=== PATIENT | female | born 1940 | race Caucasian/White ===

== ENCOUNTER 2016-10-03 19:06 | Inpatient (IN) | payer MEDICARE, OTHER ==
[2016-10-03] VITALS (7 sets, daily range): BP systolic 162–214; BP diastolic 76–105; PULSE 61–68; RESP 12–18; O2SAT 97–100
[~2016-10-03] VITALS: Ht 167.6 cm; Wt 58.0 kg
--- NOTE | 2016-10-03 19:18 | ED.REPORT ---
HPI-Chest Pain 40 and Over Date of Service October 03, 2016 ED Provider: Puneet Coronel Patient is a 76 year old female with past medical history notable for coronary artery disease with 2 cardiac stents, known lumbar compression fractures who presents to the ED via EMS complaining of back pain onset 3 weeks ago. Her pain is dull and constant. Today her pain radiated to her chest which was a new symptom for her and was concerning to her given her history of coronary artery disease and stents. She reports that at baseline she has some L leg and back numbness and she denies lower extremity weakness. She denies shortness of breath , or any other symptoms. She has had similar symptoms previously but never as severe. Nursing Notes Stated Complaint: CHEST AND BACK PAIN Chief Complaint: Chest Pain Nursing Notes Reviewed: Yes Allergies: Coded Allergies: simvastatin (Verified Allergy, Unknown, 10/03/16) Patient confirmed this allergy- was in [facility] paperwork. Scheduled Aspirin (Aspirin) 81 Mg Tablet 81 MG PO DAILY Atorvastatin (Lipitor) 20 Mg Tablet 10 MG PO DAILY Calcium Carbonate (Calcium Carbonate) 600 Mg Tablet 600 MG PO BID Hydrochlorothiazide (Hydrochlorothiazide) 25 Mg Tablet 25 MG PO DAILY Lisinopril (Lisinopril) 5 Mg Tablet 5 MG PO DAILY Loratadine (Claritin) 10 Mg Capsule 10 MG PO DAILY Losartan Potassium (Losartan Potassium) 100 Mg Tablet 100 MG PO DAILY Potassium Chloride ER (Potassium Chloride ER) 20 Meq Tablet.er 40 MEQ PO BID TAKE WITH FOOD Miscellaneous Medications ([Glucosamine-Chondro]) General Time Seen by MD: 19:17 Chief Complaint Back pain Hx Obtained From: Patient, Spouse Arrived By: Ambulance Sudden in Onset?: Yes Onset Occurred: More than a week ago... (3 weeks) Risk Factors )( CAD Risk Stratification HypertensionNo Diabetes mellitus, No Smoking Risk factors reviewed )( TAD Risk Stratification HypertensionNo High intensity wt lifting, No Risk factors reviewed )( PE Risk Stratification No Coagulation Disorder, No Risk factors reviewed Past Medical History Past Medical History IA Reports: Hypertension Past Surgical History Stents x2 Smoking History Former Smoker Social History Alcohol Use: In recovery Other Social History: Good social support, Review of Systems Constitutional: Reports: Weakness - generalized Respiratory: Denies: Shortness of breath Cardiovascular: Reports: Chest pain Musculoskeletal: Reports: Back pain Neurologic: Reports: Numbness, Denies: Weakness Complete sys rev & neg: except as marked. Physical Exam Initial Vital Signs Vital Signs (First) Date Time Temp Pulse Resp B/P Pulse Ox O2 Delivery O2 Flow Rate FiO2 10/03/16 19:12 37.1 65 12 214/90 98 Room Air 10/03/16 19:18 2 Initial VS: Reviewed Head / Eyes: Atraumatic, Normocephalic Skin: Warm, Dry Psychiatric: Mood/affect normal, Behavior normal, Normal thought content General/Constitutional: Awake, Alert, Well developed Respiratory / Chest: Breath sounds NL, Breath sounds = bilat, No respiratory distress Breath sounds slightly diminished Cardiovascular: Heart rate NL, Regular rhythm, Heart sounds NL, No gallop, No murmurs, No rubs, Peripheral circulation NL Abdomen: Soft, Non-tender, No distention Back: Full range of motion Diffuse tenderness about lumbar spine. No focal deformity Lower Extremity / Pelvis / MS: No swelling, Non-tender Neurologic: Oriented X3, Speech NL Subjective diminished sensation in LLE strenth 55 in bilat LE Mouth: Positive: Mucous membranes dry Interpretation & Diagnostics Lab Results Interpretation Result Diagram: 10/03/16192910/03/161929 Test 10/03/16 19:30 White Blood Count 5.3th/mm3 (3.8-10.1) Red Blood Count 4.54mil/mm3 (3.90-5.20) Hemoglobin 13.6g/dL (12.0-15.6) Hematocrit 36.1% (35.0-46.0) Mean Corpuscular Volume 79.5fL (81-100) Mean Corpuscular Hemoglobin 30.0pg (27.0-35.0) Mean Corpuscular Hemoglobin Concent 37.7% (32.0-37.0) Red Cell Distribution Width 11.6% (12.3-15.4) Platelet Count 216bil/L (150-400) Neutrophils (%) (Auto) 68.7% (40-74) Lymphocytes (%) (Auto) 20.8% (14-46) Monocytes (%) (Auto) 8.8% (4-12) Eosinophils (%) (Auto) 1.1% (0-5) Basophils (%) (Auto) 0.4% (0-3) Sodium Level 121mEq/L (134-144) Potassium Level 2.3mEq/L (3.5-5.2) Chloride Level 77mEq/L (97-108) Carbon Dioxide Level 33mmol/L (18-29) Blood Urea Nitrogen 17mg/dL (8-27) Creatinine 0.51mg/dL (0.57-1.00) Estimat Glomerular Filtration Rate 168mL/min (>59) Glucose Level 108mg/dL (60-99) Osmolality 263 (275-300) Calcium Level 9.5mg/dL (8.5-10.1) Magnesium Level 1.7mg/dL (1.6-2.6) Total Bilirubin 0.8mg/dL (0.0-1.2) Aspartate Amino Transf (AST/SGOT) 20U/L (0-50) Alanine Aminotransferase (ALT/SGPT) 15U/L (0-32) Alkaline Phosphatase 50U/L (25-165) Total Creatine Kinase 32U/L (21-215) Creatine Kinase MB 1.3ng/mL (0.0-5.3) Creatine Kinase MB % % (0.0-5.0) Troponin T < 0.010ug/L (0.0-0.011) Total Protein 6.5g/dL (6.4-8.4) Albumin 3.9g/dL (3.4-5.0) Thyroid Stimulating Hormone (TSH) 1.680uIU/mL (0.450-4.500) Hold Goncalves Top Tube Received (Received) ECG Interpretation ECG Interpretation: sinus rate 61 T wave inversion in leads V1-6 Compared to 08/30/15 T wave inversions new Time: 19:25 Interpreted by: ED physician X-Ray Chest Interpretation Chest Xray Interpretation: Negative View: Portable, 1 view Interpretation / Wet Read by: Interpret - ED physician Re-Eval/Medical Decision Med Decision/Clinical Course In summary, the patient is a 76-year-old female with history of coronary artery disease and 2 cardiac stents as well as known lumbar compression fractures who presents to the emergency department complaining of intermittent pain in her back that today started radiating into her chest. Upon arrival the patient is afebrile with stable vital signs and examination as above. 324 mg of aspirin were given. EKG demonstrated T wave inversions in the anterolateral leads which was new from previous studies. Laboratory studies obtained as below: cbc unrem (MCV 79.5) Na 121 Cl 77 Bicarb 33 kidney within nL limits trop neg K 2.3 Given patient's profound hypokalemia I administered 40 mEq of IV potassium as well as 40 mEq of oral potassium. Saline was judiciously administered given her hyponatremia. Initial troponin is negative however she has multiple new ischemic changes on her EKG. Patient was discussed with cardiology and they agree with plan for aspirin and admission. They do not feel that heparinization is immediately indicated. The patient does have significant low back pain related to her lumbar compression fractures she does not have any acute neurologic deficits. Chest x-ray reveals no focal pneumonia or pneumothorax and mediastinum is not widened. I feel that she requires admission for correction of her electrolyte abnormalities and further workup for acute coronary syndrome. Patient discussed with admitting hospitalist and transferred in stable condition. Time of Eval: 20:24 Re-Evaluation/Progress Note: Discussed plan for admission. Patient understands and agrees with plan. All questions addressed at this time. Consultation #1: Referral / Consult Name: Gerard Sanders MD Call Returned at: 20:28 Nurse Supervisor: Will see patient, Agrees with eval, Agrees with plan, Accepts admit Note: Discussed pt case. Accepts admit. Consultation #2: Referral / Consult Name: Gallito Guaman MD Consulted With: Cardiology Call Returned at: 20:53 Note: Discussed pt case. Will consult. Counseled Regarding: Diagnosis, Lab results, Need for admission Discharge & Departure Primary Impression: Hypokalemia Additional Impressions: Hyponatremia Chest pain Chest pain type: unspecified Qualified Code: R07.9 - Chest pain, unspecified Back pain Back pain location: back pain in unspecified location Chronicity: unspecified Back pain laterality: unspecified Qualified Code: M54.9 - Dorsalgia, unspecified Lumbar compression fracture Encounter type: initial encounter Fracture type: closed Qualified Code: S32.000A - Wedge compression fracture of unspecified lumbar vertebra, initial encounter for closed fracture History of coronary artery disease Disposition: ADMITTED TO HOSPITAL Crit Care Except Billable Proc Time Spent: 105-134 minutes Services Performed: Patient management by me, Time spent at bedside, Reviewing test results, Reviewing imaging, Discussing patient care, Documentation in record, Time with fam/surrogate Scribe Attestation Portions of this note were transcribed by Sultana Godinez. IDr. Coronel personally performed the history, physical exam and medical decision-making; I reviewed and confirmed the accuracy of the information in the transcribed note. Signed by: Sultana Godinez 10/03/16, 2114 Puneet Coronel MD October 03, 2016 19:18 SULTANA GODINEZ October 03, 2016 20:16
[2016-10-03 19:37] LABS: BASOPHILS % (AUTO) 0.4 % (0-3); EOSINOPHILS % (AUTO) 1.1 % (0-5); Mean Corpuscular Volume 79.5 fL (81-100)
[2016-10-03 19:45] LABS: MONOCYTES % (AUTO) 8.8 % (4-12); NEUTROPHILS % (AUTO) 68.7 % (40-74); Platelet Count 216 bil/L (150-400)
[2016-10-03 20:01] LABS: Magnesium 1.7 mg/dL (1.6-2.6); TROPONIN T < 0.010 ug/L (0.0-0.011)
[2016-10-03] MEDS ORDERED: Potassium Chloride 20 mEq SR Tablet PO ONE (20:20)
[2016-10-03] MEDS ORDERED: Alum-Mag Hydrox-Simeth 30 mL Suspension PO PRN ×2 (20:25→20:35)
[2016-10-03] MEDS ORDERED: Ondansetron 2 mg/mL 2 mL Inj IVPUSH PRN ×2 (20:25→20:35)
--- NOTE | 2016-10-03 20:27 | DRSVH ---
PROCEDURE: X-RAY CHEST ONE VIEW, PORTABLE ([id number]) INDICATIONS: Chest pain TECHNIQUE: One view of the chest was acquired. COMPARISON: None. FINDINGS: Surgical changes and devices: None. Lungs and pleura: No pleural effusions or pneumothorax. Lungs are clear. Mediastinum: Mediastinal contours appear normal. Heart size is normal. Bones and chest wall: No suspicious bony lesions. Overlying soft tissues appear unremarkable. IMPRESSION: Source of pain is not seen. Dictated by: Figueroa Juárez M.D. on 10/03/2016 at 20:25 Approved by: Figueroa Juárez M.D. on 10/03/2016 at 20:25
[2016-10-03] MEDS ORDERED: 0.9% Sodium Chloride 1,000 ML IV SCH ×2 (20:32→20:35)
[2016-10-03] MEDS ORDERED: Atropine 1 mg/10 mL (Code) Syringe IVPUSH PRN (20:35)
[2016-10-03] MEDS ORDERED: Polyethylene Glycol (PEG) 17 Gm Powder PO PRN (20:35)
--- NOTE | 2016-10-03 20:43 | PCM.HPMED ---
Subjective Date of Service October 03, 2016 Primary Provider: Admitting Physician: Primary Care Physician: Kye Attending Physician: Admit Status: From the Emergency Department, Full Admit Chief Complaint: Acute on chronic back pain History of Present Illness: Dilma Gannon is a 76 year old female with Chronic back pain from compression fractures,Hypertension and Dyslipidemia who presents to [facility] emergency department via EMS complaining of back pain onset 3 weeks ago. Her pain is dull and constant. Today her pain radiated to her chest and down her L leg and increased weakness. She denies focal weakness (no foot numbness) with intact bowel and urinary function. Denies any trauma recently. Recent imaging confirmed anterior L3 vertebra, acute to subacute vertebral fracture, probably osteoporotic compression fracture and multilevel degenerative disc disease at several levels at the lumbar spine most severely at L4-L5 and L5-S1 ( reviewed from Clinic records). Patient reported she is scheduled for back surgery some time this month but is unclear of the date. Chest pain is reported to be intermittent, located mid sternal without any radiation, intensity 2/10 intensity and resolved spontaneously. This is typical of her stable angina pain. she reported having a Stress test recently but is unclear of the results or if it was done. Patient reporting some confusion "I feel my head is cloudy". No new medications started and denies any fever or chills Case discussed with Dr Coronel, Na 121 K 2.3. Chest pain also concerning with some EKG changes (no previous EKG for comparison). Plan to admit to treat electrolyte derangement and to trend troponin and possible stress test in the morning Review of Systems: Pertinent positives as noted in HPI. All other systems were reviewed and are negative Allergies Coded Allergies: simvastatin (Verified Allergy, Unknown, 10/03/16) Patient confirmed this allergy- was in [facility] paperwork. Home Medications From [facility] records Aspirin 81 mg daily Atorvastatin 10 mg daily Calcium Carbonate 600 mg bud Glucosamine Hydrochlorothiazide 25 mg daily Lisinopril 5 mg daily Loratadine 10 mg daily Losartan 100 mg daily Potassium chloride 20 mEq 2 tabs bid PMH Coronary artery disease Hypertension Hyperlipidemia History of GI bleeding, (admitted to [facility]) Chronic back pain due to compressive fracture of lumbar spine (L3) with left sided sciatica . Surgical History Cardiac catheterization s/p stent placement Family History Family history of Colon cancer Social History Hx Alcohol Use: No (previously heavy drinker) Hx Substance Use: No Hx Tobacco Use: Yes Smoking Status: Former Smoker Exam Vital Signs Vital Sign - Last Date Time Temp Pulse Resp B/P Pulse Ox O2 Delivery O2 Flow Rate FiO2 10/03/16 19:18 61 18 212/97 100 Nasal Cannula 2 10/03/16 19:12 37.1 Exam General: Alert, Oriented X3, Cooperative, No acute Distress Eyes: PERRLA, Scleral Anicteric Mouth: Mouth Normal, Mucous Membranes Moist/[place] Neck: Supple, no Thyromegaly, trachea central. Chest & Lungs: Clear to auscultation & percussion, No adventitious breath sounds, no crackles, no wheeze Cardiovascular: Normal S1, Normal S2, No Murmurs/Rubs/Gallops, Regular Rate/ Rhythm, Murmur, Other (No JVD, no peripheral edema) Pulses: Radial (present and equal), Dorsalis Pedi (present and equal) Abdomen: Soft, Non-tender, Non-distended, Normoactive bowel tones. Musculoskeletal: Unremarkable. Normal range of motion, no swollen or erythematous joints Extremities: No edema, no cyanosis, no clubbing. Skin: No rashes. Warm and dry, no erythematous areas Neurological: Grossly neurologically intact, has generalized weakness, Normal Speech, Sensation Intact Lymphatic: Lymph nodes Cervical and Axillary not palpable. Lab and Diagnostics Labs Laboratory Tests Test 10/03/16 19:30 White Blood Count 5.3th/mm3 (3.8-10.1) Red Blood Count 4.54mil/mm3 (3.90-5.20) Hemoglobin 13.6g/dL (12.0-15.6) Hematocrit 36.1% (35.0-46.0) Mean Corpuscular Volume 79.5fL (81-100) Mean Corpuscular Hemoglobin 30.0pg (27.0-35.0) Mean Corpuscular Hemoglobin Concent 37.7% (32.0-37.0) Red Cell Distribution Width 11.6% (12.3-15.4) Platelet Count 216bil/L (150-400) Neutrophils (%) (Auto) 68.7% (40-74) Lymphocytes (%) (Auto) 20.8% (14-46) Monocytes (%) (Auto) 8.8% (4-12) Eosinophils (%) (Auto) 1.1% (0-5) Basophils (%) (Auto) 0.4% (0-3) Sodium Level 121mEq/L (134-144) Potassium Level 2.3mEq/L (3.5-5.2) Chloride Level 77mEq/L (97-108) Carbon Dioxide Level 33mmol/L (18-29) Blood Urea Nitrogen 17mg/dL (8-27) Creatinine 0.51mg/dL (0.57-1.00) Estimat Glomerular Filtration Rate 168mL/min (>59) Glucose Level 108mg/dL (60-99) Calcium Level 9.5mg/dL (8.5-10.1) Magnesium Level 1.7mg/dL (1.6-2.6) Total Bilirubin 0.8mg/dL (0.0-1.2) Aspartate Amino Transf (AST/SGOT) 20U/L (0-50) Alanine Aminotransferase (ALT/SGPT) 15U/L (0-32) Alkaline Phosphatase 50U/L (25-165) Troponin T < 0.010ug/L (0.0-0.011) Total Protein 6.5g/dL (6.4-8.4) Albumin 3.9g/dL (3.4-5.0) Hold Goncalves Top Tube Received (Received) Result Diagram: 10/03/16192910/03/161929 X-Rays, CTs and MRIs X-RAY CHEST ONE VIEW, PORTABLE 10/03 IMPRESSION: Source of pain is not seen. Dictated by: Figueroa Juárez M.D. on 10/03/2016 at 20:25 Approved by: Figueroa Juárez M.D. on 10/03/2016 at 20:25 Lumbar spine 09/07/16 Impressions: 1. Subtle loss of height and mild cortical angulation at the superior aspect of the anterior L3 vertebra, indicating mild acute to subacute vertebral fracture, probably osteoporotic compression fracture 2. Multilevel degenerative disc disease at several levels at the lumbar spine most severely at L4-L5 and L5-S1 3. 6 mm grade 1 anterolisthesis of L2 4. Moderate lower lumbar spine facet joint degenerative arthropathy Assessment & Plan Dilma Gannon is a 76 year old female with Chronic back pain from compression fractures,Hypertension and Dyslipidemia who presents to [facility] emergency department via EMS complaining of back pain onset 3 weeks ago. 1 Acute on chronic back pain. Present on admission With uncontrolled Hypertension, Aortic dissection will need to be ruled out. Imaging confirmed anterior L3 vertebra, acute to subacute vertebral fracture, probably osteoporotic compression fracture and multilevel degenerative disc disease at several levels at the lumbar spine most severely at L4-L5 and L5-S1. Associated sciatica also noted. Need to rule out Malignancy as well - Physical therapy assessment - pain management: Oxycodone - CT angio chest/abdomen and pelvis - patient reporting planned back surgery this month, will confirm with family and PCP tomorrow - will need Cardiology clearance prior to surgery 2 Acute Hyponatremia and Hypokalemia. Present on admission Secondary to Hydrochlorothiazide. Consider SIADH from pain as another cause ( Diagnosis of exclusion). Patient is on Potassium supplement as outpatient therefore chronic hypokalemia is suspected - IV fluids challenge, stopping HCTZ - Urine and serum osmolality, Urine sodium - checking TSH to rule out thyroid disease - plan to consult Nephrology tomorrow - monitor on telemetry - will plan to restrict Free water if SIADH is diagnosed 3 Acute Chest pain. Present on admission Typical for stable angina. Supposedly scheduled for a stress test but not done yet at this time. History of stent placement almost 10 years ago. Several risk factors with age, Hypertension, Hyperlipidemia as well as prior Myocardial infarction with stent placement (about 10 years, possibility of restenosis) - trending Cardiac biomarkers overnight - complete echo tomorrow - monitor on telemetry - nothing by mouth - Stress echo planned for tomorrow 4 Hypertension, Uncontrolled. Present on admission Likely due to pain. Presumed stable as outpatient - resume Lisinopril 5 mg daily and Losartan 100 mg daily 5 Coronary artery disease s/p stenting - continue Aspirin and Atorvastatin - Acetaminophen as needed for mild pain/fever/headache - Bowel regimen as needed - Antiemetic as needed Patient admitted under inpatient status with expected length of stay > 2 midnights for severity of present symptoms, complexities of treatment plan and risk for adverse event . Resuscitation Status: CPR: Attempt Resuscitation Gerard Sanders MD October 03, 2016 20:42
[2016-10-03 21:22] LABS: Creatine Kinase 32 U/L (21-215)
[2016-10-03] MEDS ORDERED: ATOR20TA PO (21:50)
[2016-10-03] MEDS ORDERED: LORA10CA PO (21:50)
[2016-10-03] MEDS ORDERED: CALC600T20 PO (21:50)
[2016-10-03] MEDS ORDERED: POTA-62 PO (21:50)
[2016-10-03] MEDS ORDERED: LISI-571 PO (21:50)
[2016-10-03] MEDS ORDERED: LOSA100T29 PO (21:50)
[2016-10-03] MEDS ORDERED: ASPI-973 PO (21:50)
[2016-10-03] MEDS ORDERED: GLUCOSAMINE CHONDRO (21:50)
[2016-10-03] MEDS ORDERED: HYDR25TA4 PO (21:50)
[2016-10-03 22:37] LABS: OSMOLALITY, URINE 259 mOs/kH2O (250-1200)
--- NOTE | 2016-10-03 22:40 | NUR ---
Admit Patient admitted to room 3010 at 2110 from ED. Alert and oriented, but is a poor historian for admit assessment. Reports back pain at 6/10, declined meds. BP elevated at 207/105- MD aware and ordered home meds. Connected to telemetry, IV fluids and Potassium infusing. Signed property waiver. Medications entered per [facility] paperwork. Oriented to room, call light, plan of care, hospital policies, intentional rounding, and white board is up to date. Bed alarm on, call light within reach, intentional rounding in place.
[2016-10-04] VITALS (12 sets, daily range): BP systolic 119–214; BP diastolic 72–95; PULSE 59–101; RESP 18–20; O2SAT 96–99
--- NOTE | 2016-10-04 01:18 | NUR ---
Blood pressures Patient's blood pressures have been elevated, 200/100's right after getting back in bed. Taken after she has rested, they are 160/90's. MD aware, ordered BP meds that were administered. Patient continues to deny chest pain/pressure. Close monitoring in place.
[2016-10-04 03:00] LABS: Creatine Kinase 38 U/L (21-215)
[2016-10-04 06:27] LABS: Mean Corpuscular Hemoglobin 30.5 pg (27.0-35.0)
[2016-10-04 06:55] LABS: BASOPHILS % (AUTO) 0.6 % (0-3); MONOCYTES % (AUTO) 10.7 % (4-12); Mean Corpuscular Volume 79.3 fL (81-100); Platelet Count 208 bil/L (150-400)
--- NOTE | 2016-10-04 08:39 | PCM.PNMED ---
Subjective Date of Service October 04, 2016 Subjective Patient notes feeling significant improvement overnight. She is having more clarity and thinking. Denies any pain or discomfort. Denies any chest pain or shortness of breath. She still has no appetite which has been a problem for the past number of weeks. She has not been urinating too much overnight butin recent weeks has also experienced more frequent urination which is also darker in color than usual. No other acute complaints at this time Exam Vital Signs Vital Sign - Last Date Time Temp Pulse Resp B/P Pulse Ox O2 Delivery O2 Flow Rate FiO2 10/04/16 06:24 64 10/04/16 05:38 36.6 18 162/84 98 Room Air 10/03/16 21:28 1.00 Intake and Output 10/03/16 10/03/16 10/04/16 Cumulative From/Thru 15:00 23:00 07:00 10/03/16 19:12 - 10/04/16 05:16 Intake Total 520 ml 977 ml 1497 ml Balance 520 ml 977 ml 1497 ml IV Total 520 ml 977 ml 1497 ml General: Alert, Oriented X3, Cooperative, No Acute Distress Chest & Lungs: Chest Wall Normal Cardiovascular: Regular Rate/Rhythm Abdomen: Non-tender, Non-distended Extremities: No cyanosis/clubbing/edma bilat Neurological: Grossly Neurologically Intact IVs and Medications Medications Reviewed: Medications were reviewed in detail Lab and Diagnostics Result Diagram: 10/04/16 0600 10/04/16 0600 X-Rays, CTs and MRIs X-RAY CHEST ONE VIEW, PORTABLE 10/03 IMPRESSION: Source of pain is not seen. Dictated by: Figueroa Juárez M.D. on 10/03/2016 at 20:25 Approved by: Figueroa Juárez M.D. on 10/03/2016 at 20:25 Lumbar spine 09/07/16 Impressions: 1. Subtle loss of height and mild cortical angulation at the superior aspect of the anterior L3 vertebra, indicating mild acute to subacute vertebral fracture, probably osteoporotic compression fracture 2. Multilevel degenerative disc disease at several levels at the lumbar spine most severely at L4-L5 and L5-S1 3. 6 mm grade 1 anterolisthesis of L2 4. Moderate lower lumbar spine facet joint degenerative arthropathy Assessment & Plan Dilma Gannon is a 76 year old female with Chronic back pain from compression fractures,Hypertension and Dyslipidemia who presents to [facility] emergency department via EMS complaining of back pain onset 3 weeks ago. 1 Acute on chronic back pain. Present on admission - Physical therapy assessment - pain management: Oxycodone - CT angio chest/abdomen and pelvis ordered to R/O Aortic dissection. possible malignancy, or other more acute pathology. Official result is pending however my and night doctor's evaluation of CT does not seem to demonstrate any acute pathology. - patient reporting planned back surgery this month, will confirm with family and PCP tomorrow - will need Cardiology clearance prior to surgery 2 Acute Hyponatremia and Hypokalemia. Present on admission Secondary to Hydrochlorothiazide. Consider SIADH from pain as another cause ( Diagnosis of exclusion). Patient is on Potassium supplement as outpatient therefore chronic hypokalemia is suspected - IV fluids challenge, stopping HCTZ: Patient corrected very quickly we will now discontinue intravenous fluids. - Urine and serum osmolality, Urine sodium resulted - checking TSH to rule out thyroid disease, which was normal. - monitor on telemetry - will plan to restrict Free water if SIADH is diagnosed - Appreciate nephrology consultation and recommendations 3 Acute Chest pain. Present on admission Typical for stable angina. Supposedly scheduled for a stress test but not done yet at this time. History of stent placement almost 10 years ago. Several risk factors with age, Hypertension, Hyperlipidemia as well as prior Myocardial infarction with stent placement (about 10 years, possibility of restenosis) - trending Cardiac biomarkers overnight, remained within normal limits - complete echo pending - monitor on telemetry - nothing by mouth - Stress echo planned and pending. 4 Hypertension, Uncontrolled. Present on admission Likely due to pain. Presumed stable as outpatient - Resume Lisinopril 5 mg daily and Losartan 100 mg daily - Improved since admission- 5 Coronary artery disease s/p stenting - continue Aspirin and Atorvastatin . Pain Evaluation: Adequate Pain Control GI Prophylaxis: Not indicated VTE Mechanical Devices: Intermittant Pneumatic CD Resuscitation Status: CPR: Attempt Resuscitation Time spent 25 minutes Jamar Neri DO October 04, 2016 08:39
--- NOTE | 2016-10-04 08:46 | DRSVH ---
PROCEDURE: CT ANG CHEST/ABD W/WO CONTRAST ([id number]) INDICATIONS: r/o dissection TECHNIQUE: Precontrast 5 mm thick sections acquired from the lung apices to the iliac crests. After the adminis tration of intravenous contrast, 3 mm thick sections again acquired from the lung apices to the iliac crests. 3-dimensional maximum intensity projection (MIP) oblique sagittal and coronal reformats wer e then acquired, and/or 3-dimensional volume rendering reformats. For radiation dose reduction, the following was used: automated exposure control. COMPARISON: [facility], CR, XR CHEST 1VW (PORTABLE), 10/03/2016, 19:25. FINDINGS: Image quality: Excellent. AORTA: No evidence of dissection, stenosis, nor aneurysm. Mild diffuse plaque involves the abdominal aorta and iliac vasculature. CHEST: Lungs and pleura: No acute airspace opacities. Ill-defined 11 mm diameter nodule within the left upp er lobe anteriorly. There are a few adjacent ill-defined nodular densities within the left upper lobe laterally, largest of which measures 6 mm. No pleural effusions or pneumothorax. Central and periph eral airways are patent and normal in caliber. Mediastinum: Heart size is normal. There is calcification of the coronary vasculature. No pericardi al effusion. No mediastinal or hilar adenopathy by size criteria. Central pulmonary arteries are no rmal in size. Esophagus is normal in caliber. No hiatal hernias. Bones and chest wall: No axillary adenopathy by size criteria. Thyroid gland demonstrates a 20 mm d iameter low-density nodule within the left lobe. No suspicious bony lesions. No vertebral body comp ression fractures. ABDOMEN: Vasculature: Celiac trunk and mesenteric arteries are patent. Renal arteries are also patent. Solid organs: Liver and spleen are normal in size. 6 mm diameter nodular region of enhancement withi n the lateral segment left hepatic lobe anteriorly. Gallbladder is within normal limits. Biliary sys tem is non dilated. Pancreas enhances normally. No adrenal nodules. Both kidneys are normal in siz e and enhancement, without hydronephrosis. Peritoneum and bowel: No free fluid or air. Bowel loops are normal in caliber and wall thickness. Nodes and vessels: No retroperitoneal or mesenteric adenopathy by size criteria. Inferior vena cava is normal in morphology. Bones: No suspicious bony lesions. No vertebral body compression fractures. Miscellaneous: No ventral hernias. IMPRESSION: 1. No evidence of aortic dissection, nor aneurysm. 2. 11 mm diameter left upper lobe nodule, possibly indicating malignancy. PET/CT examination may be h elpful for further assessment. 3. Ill-defined small nodular densities within the left upper lobe laterally, possibly secondary to at ypical microbacterial or fungal infection. Follow up is recommended as below to exclude malignancy. 4. Left thyroid nodule, which could be further assessed with ultrasound, if clinically indicated. Fleischner Society criteria for SOLID lung nodule followup. Nodule size (mm)Low-risk patientHigh-risk patient<6 (single or multiple)No routine followup.Optional CT at 12 months. 6-8 (single or multiple)CT at 6-12 months, then optional CT at 18-24 mo.CT at 6-12 m onths, then CT at 18-24 months. >8 (single)CT, PET-CT, or biopsy at 3 months. Same as for low-risk p ts. >8 (multiple)CT at 3-6 months, then optional CT at 18-24 mo.CT at 3-6 months, then CT at 18-24 m onths. Recommendations do not apply to lung cancer screening, patients with immunosuppression, or pa tients with known primary cancer. Dictated by: David Jimenez M.D. on 10/04/2016 at 8:32 Approved by: David Jimenez M.D. on 10/04/2016 at 8:45
[2016-10-04] MEDS: Senna-Docusate 8.6-50 mg Tablet PO PRN (09:16)
[2016-10-04] MEDS ORDERED: Dextrose 5% 250 ML IV STA (09:45)
[2016-10-04] MEDS ORDERED: KCl 40 mEq/D5W 500 mL 40 MEQ in IV Premix 1 EACH IV ONE ×2 (10:30→10:35)
--- NOTE | 2016-10-04 15:17 | CONS ---
[address] [address] CONSULTATION REPORT PATIENT: BARRY BALL : 1940 MR#: [id number] ADMIT: 10/03/2016 JOB ID: [id number] DATE OF SERVICE: 10/04/2016 NEPHROLOGY CONSULTATION: REQUESTING PHYSICIAN: Dr. Neri REASON FOR CONSULTATION: Management of hyponatremia. CHIEF COMPLAINT: Persistent back pain and new onset chest pain. PRESENT ILLNESS: This is a very pleasant 76-year-old lady with a significant past medical history of hypertension, coronary artery disease status post stenting, chronic low back pain presented to the emergency department with a complaint of persistent chronic back pain and new onset chest pain. The patient has had history of chronic lower back pain. Over the past three weeks, the pain has gotten worse. It led her to take multiple pain medications including [place] pain pills (ibuprofen), Tylenol, muscle relaxant and medical marijuana. The patient was taking those medications for a couple of weeks. Medical marijuana which was started three days ago. Her has noticed that she has worsening memory loss over the past 2-3 weeks. The patient does have history of forgetfulness in which she was evaluated by a neurologist one time. The patient reports history of poor appetite and lack of sleep due severe low back pain. She had lost a couple of pounds over the past week. She is complaining of being thirsty all the time. The patient drinks 10-12 of 12 ounce glass every day. The patient is known to have lumbar compression fracture. She was scheduled to have the surgery on October 17, 2016. She also complains of chest pain. She stated that the pain started on the epigastric area and radiates to the substernal area. The pain lasted for at least one hour. The severity was 7-8/10. She is not able to characterize the pain for me. She took nitroglycerin sublingual and that has alleviated the pain. The patient reports no history of jaw or left arm pain. The patient had no history of palpitation or profile sweating. During my visit, I performed orthostatic vitals. Sitting blood pressure was 174/82, pulse of 63, standing blood pressure 119/72, pulse of 83. Her initial BMP showed a sodium of 121, potassium of 2.3, chloride of 77, bicarbonate of 33. She received normal saline overnight at 80 cc/hour. This morning her sodium yovany to 130. She reports that she is feeling better except the pain is not well controlled. She has no dysuria, no hematuria. No fevers, no chills. No nausea, vomiting and no diarrhea. Of note, she was taking hydrochlorothiazide for her hypertension. She was also known to have chronic hypokalemia in which she takes potassium chloride 40 mEq twice a day. PAST MEDICAL HISTORY: 1. Chronic hypertension. 2. Chronic hypokalemia. 3. Dyslipidemia. 4. Coronary artery disease status post stenting. 5. Chronic low back pain due to compression fractures. PAST SURGICAL HISTORY: Status post PCI and cardiac stenting x2. FAMILY HISTORY: Significant history of heart disease in the family. No kidney disease in the family. SOCIAL HISTORY: She is a former smoker. Denies current use of tobacco, alcohol. She recently started medical marijuana, treating for chronic low back pain. REVIEW OF SYSTEMS: Fourteen point review of system was performed. PHYSICAL EXAMINATION: Vitals: Temperature 36.6, pulse 63, respiratory rate 18, blood pressure 174/82, standing blood pressure was 119/72. General appearance: Awake, alert, oriented x3. In no acute distress. HEENT: Atraumatic, dry mucous membranes. No pallor. No icteric sclerae. PERRLA. No JVD. No lymphadenopathy. No thyroid enlargement. Heart: Regular rhythm. Normal S1, S2. No murmurs, rubs or gallops. Lungs: Clear to auscultation bilaterally. No wheezing. No rhonchi. Abdomen: Soft, active bowel sounds. Nontender. Nondistended. No hepatosplenomegaly. Extremities: No cyanosis or clubbing of fingers. Skin positive for skin turgor. LABORATORY: Sodium 130, potassium 2.8, chloride 85, bicarbonate 32, BUN 11, creatinine 0.44, glucose 96, calcium 9.3. Hemoglobin 14.3, WBC 5.1, platelets 208. Urine sodium 49. Urine osmolarity 259. Serum osmolarity 263. CAT scan of the chest and abdomen showed no evidence of aortic dissection, an 11 mm diameter left upper lobe nodule was identified, ill-defined small nodular densities within the left upper lobe bilaterally possibly secondary to atypical micro bacterial or fungal infection. Left thyroid nodule was noted. ASSESSMENT: 1. Chronic hyponatremia. We do not have the onset of the hyponatremia. I assume that she has had hyponatremia more than 48 hours. According to my assessment, the patient has positive orthostatics. Of note, she was taking hydrochlorothiazide for her hypertension. She had lost 2-3 pounds over the past week with the history of poor appetite. Her labs showed that she has hyponatremia, hypokalemia and metabolic alkalosis. Her serum BUN and creatinine ratio is elevated. I think the patient has hypovolemic hyponatremia and it was reasonable to give her normal saline. However, it has been over corrected. It yovany from 121 to 130 within 12 hours. At this point, I would like to bring the sodium down. The target for the sodium today should be around 126-128. I will go ahead and give her D5 water 250 cc bolus and will continue at 80 cc/hour. I will recheck her BMP again at three o'clock. Of note, the patient has the underlying disease that may confuse us that she may have SIADH since she has pulmonary pathology, According to the test that speaks against SIADH is her urine osmo is lower than her serum osmo and also that she is hypovolemic. However, we cannot rule out that she might have underlying disease of SIADH and now superimposed with hypovolemia. Another thing that may speak against SIADH is that her sodium was corrected quickly with just only normal saline. Typically we do not see this condition in the clinical setting of SIADH. 2. 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 I would recommend to rule out secondary hypertension. However, the patient has been on the diuretics. If we order serum renin and aldosterone, the result would not be valid given the interference from the medications. We need to figure it out once patient is stable. 3. Uncontrolled hypertension likely related to pain. I will continue losartan and start her on amlodipine. I do not see the benefits of being on both MARLEEN inhibitor and ARB. 4. Dyslipidemia. 5. Coronary artery disease status post stenting. Thank you for allowing me to participate in the care of your patient. We will monitor along with you. RAMIRO
[2016-10-04] MEDS ORDERED: D5 0.45% NaCl + KCl 40 mEq/L 1,000 ML IV SCH (16:25)
--- NOTE | 2016-10-04 16:34 | DRSVH ---
[facility] [address] [place] [address] Echocardiogram Report Name: BARRY BALL RStudy Date: 10/04/2016 Height: 66 in Hospital Exam Location: [facility] Weight: 134 lb Gender: Female BSA: 1.7 m2 : 1940 Age: 76 yrs BP: 162/84 mmHg Reason For Study: chest pain, back painp Ordering Physician: [facility] Performed By: Tee Espinoza Referring Physician: KELL REYES Interpretation Summary Moderate concentric left ventricular hypertrophy with hyperdynamic function. The ejection fraction is 70-75%. Grade I diastolic dysfunction. Mild aortic valve sclerosis. Moderate mitral annular calcification. Mildly enlarged ascending aorta. There is a small loculated pericardial effusion. There are no echocardiographic indications of cardiac tamponade. Low intravascular volume. Procedure: A two-dimensional transthoracic echocardiogram with color flow and Doppler was performed. The study quality was technically difficult. Early images were obtained by Delroy Luna RDCS. Tee Espinoza RDCS took over due to exam difficulty. The heart rate ranged between 64-78 bpm during the study. Left Ventricle: The left ventricular cavity is small. There is moderate concentric left ventricular hypertrophy. The left ventricle is hyperdynamic. The ejection fraction is estimated to be 70-75%. There are no focal wall motion abnormalities. Spectral Doppler of the mitral valve is reversed, with an E/A wave ratio < 1.0. Right Ventricle: The right ventricle grossly appears normal in size with probable normal systolic function. Atria: The left atrial size is normal. The right atrium grossly appears normal in size. There is no Doppler evidence for an atrial septal defect. Mitral Valve: The mitral valve leaflets are slightly calcified. There is moderate mitral annular calcification. There is no mitral regurgitation noted. Aortic Valve: There is mild aortic valve sclerosis. The aortic valve is trileaflet. The aortic valve opens well. No aortic regurgitation is present. Tricuspid Valve: The tricuspid valve is not well visualized, but is grossly normal. Pulmonary artery pressures cannot be estimated because of the lack of a measurable TR jet velocity. Pulmonic Valve: The pulmonic valve is not well visualized. Great Vessels: The aortic root is normal size. The ascending aorta is mildly enlarged. The pulmonary artery is not well visualized, but is probably normal size. The IVC is of normal diameter and collapses greater than 50% with a sniff. This suggests a low right atrial pressure of 3 mm Hg. Pericardium/ Pleura There is a small loculated pericardial effusion. There are no echocardiographic indications of cardiac tamponade. There is no pleural effusion. MMode/2D Measurements & Calculations LVIDd: 3.3 cm LA A2 area RA area LVOT diam: 2.1 cm IVSd: 1.4 cm AoV Openin.2 cm LVPWd: 1.4 cm : 12.6 2m Ao root diam: 3.4 cm LA A4 area asc Aorta Diam LA length (vol) Ao Arch Diam (Prox Trans): 2.9 cm LA vol: 38.3 ml LA vol index : 22.7 ml/m2 LV sol. diameter/BSA (cm/m^2): 1.9 Doppler Measurements & Calculations Ao V2 max MV E max dakota MV E/A: 0.46 TR max dak[place] : 105.2 cm/sec : 39.9 cm/sec Med Peak E' [place] : 242.6 cm/sec Ao max PG MV A max dak[place] TR max P.5 mmHg : 4.4 mmHg : 86.4 cm/sec E/E' med: 6.8 Ao mean PG Lat Peak E' [place] LVOT Max [place] E/E' lat: 6.9 : 84.1 cm/sec E/e' average: 6.8 GREGORY(I,D): 2.8 cm sev ratio MV dec time Ao V2 mean LV V1 max PG GREGORY indexed to BSA : 0.24 sec : 74.8 cm/sec (cm^2/m^2): 1.6 Ao V2 VTI LV V1 VTI: 17.2 cm GREGORY(V,D): 2.8 cm2 Electronically signed by: Brenton Edwards on Reading Physician:10/04/2016 04:34 PM
[2016-10-04] MEDS: Potassium Chloride 20 mEq/15 mL 15mL Oral Soln PO SCH (17:18)
--- NOTE | 2016-10-04 18:30 | NUR ---
Pain Patient having intermittent severe back pain. Patient sobbing and tearful at times. Resistant to pain medications in fear of "becoming addicted". Position and immobility during Echo and Ultrasound increased pain for patient. Difficulty getting pain back under control. Patient "thrashing" around in bed, moved to Mazin chair, in efforts to decrease pain. Egg crate mattress added to bed (foam bed not avail). Patient weak and unsteady when up to bathroom with FFW. Spouse reports numerous recent falls.
[2016-10-05] VITALS (7 sets, daily range): BP systolic 122–198; BP diastolic 71–90; PULSE 68–76; RESP 16–18; O2SAT 96–98
--- NOTE | 2016-10-05 03:17 | NUR ---
Blood Pressures Patient's HS blood pressure at 2145 was 177/95. Patient given PRN Morphine at 2230, and has slept since. BP at 0200 was 125/71. This measurement was taken with patient laying in bed, supine, before she got up to use the BSC. Patient reports that pain is "not too bad" at this time, and said, "Man, I must have slept like a rock". Patient appears more comfortable and rested, and is currently back asleep. [place] bed alarm on for safety, frequent rounding in place.
[2016-10-05 06:29] LABS: BASOPHILS % (AUTO) 0.7 % (0-3); MONOCYTES % (AUTO) 11.2 % (4-12); Mean Corpuscular Hemoglobin 29.9 pg (27.0-35.0); Mean Corpuscular Volume 80.9 fL (81-100); NEUTROPHILS % (AUTO) 46.4 % (40-74); Platelet Count 229 bil/L (150-400)
[2016-10-05 06:55] LABS: Magnesium 1.8 mg/dL (1.6-2.6)
[2016-10-05] MEDS: Potassium Chloride 20 mEq/15 mL 15mL Oral Soln PO SCH ×2 (08:30→21:21)
[2016-10-05] MEDS: Senna-Docusate 8.6-50 mg Tablet PO PRN ×2 (09:42→20:05)
--- NOTE | 2016-10-05 11:41 | PCM.PNNEPH ---
Subjective Date of Service October 05, 2016 Subjective Pain has been controlled. Na 130. feeling better. Per her mental status is back to normal. Exam Vital Signs Vital Sign - Last Date Time Temp Pulse Resp B/P Pulse Ox O2 Delivery O2 Flow Rate FiO2 10/05/16 08:51 36.9 70 18 198/89 96 Room Air 10/03/16 21:28 1.00 Intake and Output 10/04/16 10/04/16 10/05/16 Cumulative From/Thru 15:00 23:00 07:00 10/03/16 19:12 - 10/05/16 06:42 Intake Total 0 ml 1580 ml 772 ml 3849 ml Output Total 2475 ml 1000 ml 1000 ml 4475 ml Balance -2475 ml 580 ml -228 ml -626 ml Intake Oral 0 ml 600 ml 0 ml 600 ml IV Total 980 ml 772 ml 3249 ml Output Urine Total 2475 ml 1000 ml 1000 ml 4475 ml # Voids 1 1 # Bowel Movements 0 0 0 Exam General appearance: Awake, alert, oriented x3. In no acute distress. HEENT: Atraumatic, dry mucous membranes. No pallor. No icteric sclerae. PERRLA. No JVD. No lymphadenopathy. No thyroid enlargement. Heart: Regular rhythm. Normal S1, S2. No murmurs, rubs or gallops. Lungs: Clear to auscultation bilaterally. No wheezing. No rhonchi. Abdomen: Soft, active bowel sounds. Nontender. Nondistended. No hepatosplenomegaly. Extremities: No cyanosis or clubbing of fingers. Lab and Diagnostics Result Diagram: 10/05/16 0542 10/05/16 0542 X-Rays, CTs and MRIs X-RAY CHEST ONE VIEW, PORTABLE 10/03 IMPRESSION: Source of pain is not seen. Dictated by: Figueroa Juárez M.D. on 10/03/2016 at 20:25 Approved by: Figueroa Juárez M.D. on 10/03/2016 at 20:25 Lumbar spine 09/07/16 Impressions: 1. Subtle loss of height and mild cortical angulation at the superior aspect of the anterior L3 vertebra, indicating mild acute to subacute vertebral fracture, probably osteoporotic compression fracture 2. Multilevel degenerative disc disease at several levels at the lumbar spine most severely at L4-L5 and L5-S1 3. 6 mm grade 1 anterolisthesis of L2 4. Moderate lower lumbar spine facet joint degenerative arthropathy Plan Impression ASSESSMENT: 1. Hypovolemic hyponatremia secondary to HCTZ and poor PO intake. improving with NS. 2. HTN. 3. 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 4. Lumbar compression fracture. 5. Pulmonary nodules, need pulmonary consultation as OP. need to rule out malignancy vs infectious process. Plan: Increase amlodipine to 10 mg daily. Continue losartan. Repeat orthostatic BP. KCL 40 mg daily when d/c home. Hold HCTZ. Decrease water intake, limit at 6 glasses of 8 oz glass a day. Repeat BMP in am if remains hospitalized. Repeat BMP in 1 week. F/u in 2-3 weeks. Rec pulmonary consultation. Harper Munoz MD October 05, 2016 11:41
--- NOTE | 2016-10-05 11:56 | PCM.PNMED ---
Subjective Date of Service October 05, 2016 Subjective Patient feeling significantly improved this morning. Very much back to her old self of distal little bit weaker than usual. Increased appetite better by mouth intake. Still very nervous about what happened recently, and the underlying cause. No acute complaints however. Her chronic pain is at least stable. No chest pain palpitations or difficulty breathing. Exam Vital Signs Vital Sign - Last Date Time Temp Pulse Resp B/P Pulse Ox O2 Delivery O2 Flow Rate FiO2 10/05/16 08:51 36.9 70 18 198/89 96 Room Air 10/03/16 21:28 1.00 Intake and Output 10/04/16 10/04/16 10/05/16 Cumulative From/Thru 15:00 23:00 07:00 10/03/16 19:12 - 10/05/16 06:42 Intake Total 0 ml 1580 ml 772 ml 3849 ml Output Total 2475 ml 1000 ml 1000 ml 4475 ml Balance -2475 ml 580 ml -228 ml -626 ml Intake Oral 0 ml 600 ml 0 ml 600 ml IV Total 980 ml 772 ml 3249 ml Output Urine Total 2475 ml 1000 ml 1000 ml 4475 ml # Voids 1 1 # Bowel Movements 0 0 0 Exam General appearance: Awake, alert, oriented x3. In no acute distress. HEENT: Atraumatic, dry mucous membranes. No pallor. No icteric sclerae. PERRLA. No JVD. No lymphadenopathy. No thyroid enlargement. Heart: Regular rhythm. Normal S1, S2. No murmurs, rubs or gallops. Lungs: Clear to auscultation bilaterally. No wheezing. No rhonchi. Abdomen: Soft, active bowel sounds. Nontender. Nondistended. No hepatosplenomegaly. Extremities: No cyanosis or clubbing of fingers. IVs and Medications Medications Reviewed: Medications were reviewed in detail Lab and Diagnostics Result Diagram: 10/05/1642 10/05/16541 X-Rays, CTs and MRIs X-RAY CHEST ONE VIEW, PORTABLE 10/03 IMPRESSION: Source of pain is not seen. Dictated by: Figueroa Juárez M.D. on 10/03/2016 at 20:25 Approved by: Figueroa Juárez M.D. on 10/03/2016 at 20:25 Lumbar spine 09/07/16 Impressions: 1. Subtle loss of height and mild cortical angulation at the superior aspect of the anterior L3 vertebra, indicating mild acute to subacute vertebral fracture, probably osteoporotic compression fracture 2. Multilevel degenerative disc disease at several levels at the lumbar spine most severely at L4-L5 and L5-S1 3. 6 mm grade 1 anterolisthesis of L2 4. Moderate lower lumbar spine facet joint degenerative arthropathy Assessment & Plan Dilma Gannon is a 76 year old female with Chronic back pain from compression fractures,Hypertension and Dyslipidemia who presents to [facility] emergency department via EMS complaining of back pain onset 3 weeks ago. 1 Acute on chronic back pain. Present on admission - Physical therapy assessment - pain management: Oxycodone - CT angio chest/abdomen and pelvis ordered to R/O Aortic dissection. possible malignancy, or other more acute pathology. This is not identified however there was an incidental running of lung nodule notable - patient reporting planned back surgery this month, will confirm with family and PCP tomorrow - will need Cardiology clearance prior to surgery 2 Acute Hyponatremia and Hypokalemia. Present on admission Secondary to Hydrochlorothiazide. Consider SIADH from pain as another cause ( Diagnosis of exclusion). Patient is on Potassium supplement as outpatient therefore chronic hypokalemia is suspected - IV fluids challenge, stopping HCTZ: Patient corrected very quickly, further adjustment stabilized sodium increase we will now discontinue intravenous fluids. Monitor only with oral hydration. - Urine and serum osmolality, Urine sodium resulted, as per nephrology [employer] consultant this is not supportive of SIADH as initially was a concern. - checking TSH to rule out thyroid disease, which was normal. - Hydrochlorothiazide now discontinued will manage blood pressure with amlodipine and losartan. - We will monitor patient overnight follow-up exam BMP levels and to spit discharge home in the morning if patient remains medically stable off of intravenous hydration therapy on new medication regime. - Appreciate nephrology consultation and recommendations 3 Acute Chest pain. Present on admission Typical for stable angina. Supposedly scheduled for a stress test but not done yet at this time. History of stent placement almost 10 years ago. Several risk factors with age, Hypertension, Hyperlipidemia as well as prior Myocardial infarction with stent placement (about 10 years, possibility of restenosis) - trending Cardiac biomarkers overnight, remained within normal limits - complete echo pending - Continue to monitor on telemetry 4 Hypertension, Uncontrolled. Present on admission Likely due to pain. Presumed stable as outpatient - Resume Lisinopril 5 mg daily and Losartan 100 mg daily - Improved since admission- 5 Coronary artery disease s/p stenting - continue Aspirin and Atorvastatin .6. Lung nodule ~11mm - Incidental finding should be followed up in outpatient setting by primary care doctor intermittently. - Further evaluation will be required patient may consider pulmonology follow- up in outpatient setting. - Repeat CT in 3 months at the very least likely biopsy will be required based on size. She established primary care physician in the area of planned discharge tomorrow if remains stable follow-up BMP I commended in 1 week as per nephrology consult. Pain Evaluation: Adequate Pain Control GI Prophylaxis: Not indicated VTE Mechanical Devices: Intermittant Pneumatic CD Resuscitation Status: CPR: Attempt Resuscitation Time spent 25 minutes Jamar Neri DO October 05, 2016 11:56
--- NOTE | 2016-10-05 13:29 | NUR ---
Scheduled Res.Clinic appointment for October 15 check in at 1040 for 1050 AM appointment with . Updated HEADER BOSS
--- NOTE | 2016-10-05 15:46 | NUR ---
Social Work Note - initial assessment. Dilma Gannon is a 76 yr old who was admitted for Chest Pain - Hyponatremia. EMR reviewed: Pt has Medicare and [employer]. Pt was set up for new PCP by UR specialist. No LTC, [place] benefits. Pt has DPOA paperwork at home. Readmit score 1. See attached CM initial assessment. HEAVY MEDIA OPERATOR met with pt - Pt's also in the room. HEAVY MEDIA OPERATOR introduced D/C planning and explained SW role. Pt lives in [place] with her . She is independent at baseline - has a walker at home but rarely uses it. She drives - but admits her does much of the driving. She states she is feeling better, denies any needs for home. HEAVY MEDIA OPERATOR offered HH - Pt and declined at this time. Plan: Home with in PO> RAGHAVENDRA Wilcox Addendum: 10/05/16 at 1552 by JYOTHI LOCKWOOD SS Amended: Links added.
--- NOTE | 2016-10-05 18:30 | NUR ---
Pain/Mentation Patient pain now controlled with oral pain meds every 4 hours. Patient no longer resistant to using pain meds. Patient very forgetful. Did not know where she was this morning. Unable to remember that she cannot get up without stand by assist due to multiple recent home falls. Must use mery alarm for safety.
[2016-10-06 05:41] VITALS: BP 154/82; PULSE 73; RESP 18; O2SAT 97
--- NOTE | 2016-10-06 06:30 | NUR ---
Shift Note - Constipation Pt had reported constipation that began prior to admit. Gave Senna with evening meds on 10/05/16, Pt had BM x2 over remainder of 12 hour NOC shift. Pt was pleasant throughout shift. No complaints of pain; Pt appeared to sleep soundly through the night, only waking twice to use restroom.
[2016-10-06] MEDS: Potassium Chloride 20 mEq/15 mL 15mL Oral Soln PO SCH (08:34)
--- NOTE | 2016-10-06 10:19 | PCM.DC.MED ---
Discharge Summary Date of Service October 06, 2016 Dates of Hospitalization Date of Hospital Admission October 03, 2016 at 20:48 Date of Discharge: October 06, 2016 Providers: Admitting Physician: Gerard Sanders MD Primary Care Physician: [place] Attending Physician: Gerard Sanders MD Diagnosis at Time of Discharge Diagnosis at Time of Discharge 1. Hyponatremia 2. Lung Nodule 3. Hypertension 4. Back pain/disc disease Consultations Nephrology: Dr Munoz: as per her recommendations, " ASSESSMENT: 1. Hypovolemic hyponatremia secondary to HCTZ and poor PO intake. improving with NS. 2. HTN. 3. 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 4. Lumbar compression fracture. 5. Pulmonary nodules, need pulmonary consultation as OP. need to rule out malignancy vs infectious process. Plan: Increase amlodipine to 10 mg daily. Continue losartan. Repeat orthostatic BP. KCL 40 mg daily when d/c home. Hold HCTZ. Decrease water intake, limit at 6 glasses of 8 oz glass a day. Repeat BMP in 1 week. F/u in 2-3 weeks. Rec pulmonary consultation.' Procedures XRay, CTs & MRIs X-RAY CHEST ONE VIEW, PORTABLE 10/03 IMPRESSION: Source of pain is not seen. Dictated by: Figueroa Juárez M.D. on 10/03/2016 at 20:25 Approved by: Figueroa Juárez M.D. on 10/03/2016 at 20:25 Lumbar spine 09/07/16 Impressions: 1. Subtle loss of height and mild cortical angulation at the superior aspect of the anterior L3 vertebra, indicating mild acute to subacute vertebral fracture, probably osteoporotic compression fracture 2. Multilevel degenerative disc disease at several levels at the lumbar spine most severely at L4-L5 and L5-S1 3. 6 mm grade 1 anterolisthesis of L2 4. Moderate lower lumbar spine facet joint degenerative arthropathy Brief History As per HPI by admitting physcian, "Dilma Gannon is a 76 year old female with Chronic back pain from compression fractures,Hypertension and Dyslipidemia who presents to [facility] emergency department via EMS complaining of back pain onset 3 weeks ago. Her pain is dull and constant. Today her pain radiated to her chest and down her L leg and increased weakness. She denies focal weakness (no foot numbness) with intact bowel and urinary function. Denies any trauma recently. Recent imaging confirmed anterior L3 vertebra, acute to subacute vertebral fracture, probably osteoporotic compression fracture and multilevel degenerative disc disease at several levels at the lumbar spine most severely at L4-L5 and L5-S1 ( reviewed from Clinic records). Patient reported she is scheduled for back surgery some time this month but is unclear of the date. Chest pain is reported to be intermittent, located mid sternal without any radiation, intensity 2/10 intensity and resolved spontaneously. This is typical of her stable angina pain. she reported having a Stress test recently but is unclear of the results or if it was done. Patient reporting some confusion "I feel my head is cloudy". No new medications started and denies any fever or chills Case discussed with Dr Coronel, Na 121 K 2.3. Chest pain also concerning with some EKG changes (no previous EKG for comparison). Plan to admit to treat electrolyte derangement and to trend troponin and possible stress test in the morning" Hospital Course 1 Acute on chronic back pain. Present on admission - Physical therapy assessment - pain management: Oxycodone , continued on discharge. - CT angio chest/abdomen and pelvis ordered to R/O Aortic dissection. possible malignancy, or other more acute pathology. This is not identified however there was an incidental running of lung nodule notable - patient reporting planned back surgery this month, will confirm with family and PCP tomorrow - will need Cardiology clearance prior to surgery. Echo obtained during hospitalization included in summary. 2 Acute Hyponatremia and Hypokalemia. Present on admission: Pt responded well to IV hydration with NS, however corrected rapidly prompting transition to 1/ 2NS initally, which was then discontinued. Early concern for SIADH seemed unwarranted given urine osmolality and rapid correction. Discontinuation of HCTZ and transition from Lisinopril to Losartan an Npehrology recommendation seemed ot have corrected problem. Sodium low normal on discharge. Plan for FU BMP in 1 week following discharge. 3 Acute Chest pain. Present on admission Typical for stable angina. Supposedly scheduled for a stress test but not done yet at this time. History of stent placement almost 10 years ago. Several risk factors with age, Hypertension, Hyperlipidemia as well as prior Myocardial infarction with stent placement (about 10 years, possibility of restenosis) - trending Cardiac biomarkers overnight, remained within normal limits - Continued to monitor on telemetry which remained normal. 4 Hypertension, Uncontrolled. Present on admission Likely due to pain. Presumed stable as outpatient - Transitioned form Lisinopril 5 mg daily to Losartan 100 mg daily. Amlodipine added and HCTZ discontinued. BP demonstrated only mild elevation of DC, plan to continue to monitor in out patient setting. 5 Coronary artery disease s/p stenting - continue Aspirin and Atorvastatin .6. Lung nodule ~11mm - Incidental finding should be followed up in outpatient setting by primary care doctor intermittently. - Further evaluation will be required patient may consider pulmonology follow- up in outpatient setting. - Repeat CT in 3 months at the very least likely biopsy will be required based on size. Exam Vital Signs (Last) Date Time Temp Pulse Resp B/P Pulse Ox O2 Delivery O2 Flow Rate FiO2 10/06/16 05:41 36.9 73 18 154/82 97 Room Air 10/03/16 21:28 1.00 Exam General appearance: Awake, alert, oriented x3. In no acute distress. HEENT: Atraumatic, dry mucous membranes. No pallor. No icteric sclerae. PERRLA. No JVD. No lymphadenopathy. No thyroid enlargement. Heart: Regular rhythm. Normal S1, S2. No murmurs, rubs or gallops. Lungs: Clear to auscultation bilaterally. No wheezing. No rhonchi. Abdomen: Soft, active bowel sounds. Nontender. Nondistended. No hepatosplenomegaly. Extremities: No cyanosis or clubbing of fingers. Test 10/03/16 19:30 10/03/16 22:15 10/04/16 02:10 10/04/16 06:00 Osmolality 263 (275-300) Total Bilirubin 0.8mg/dL (0.0-1.2) Aspartate Amino Transf (AST/SGOT) 20U/L (0-50) Alanine Aminotransferase (ALT/SGPT) 15U/L (0-32) Alkaline Phosphatase 50U/L (25-165) Total Protein 6.5g/dL (6.4-8.4) Albumin 3.9g/dL (3.4-5.0) Thyroid Stimulating Hormone (TSH) 1.680uIU/mL (0.450-4.500) Hold Goncalves Top Tube Received (Received) Urine Osmolality 259mOs/kH2O (250-1200) Urine Random Sodium 49mEq/L Total Creatine Kinase 38U/L (21-215) Creatine Kinase MB 1.9ng/mL (0.0-5.3) Creatine Kinase MB % % (0.0-5.0) Troponin T 0.010ug/L (0.0-0.011) Triglycerides Level 74mg/dL (0-149) Cholesterol Level 153mg/dL (100-199) LDL Cholesterol, Calculated 78.200mg/dL (0-99) VLDL Cholesterol 14.800mg/dL HDL Cholesterol 60mg/dL (>39) Cholesterol/HDL Ratio 2.55 (0.0-4.4) Test 10/04/16 08:29 10/05/16 05:42 10/06/16 05:30 Uric Acid 3.4mg/dL (2.6-7.2) White Blood Count 5.5th/mm3 (3.8-10.1) Red Blood Count 4.65mil/mm3 (3.90-5.20) Hemoglobin 13.9g/dL (12.0-15.6) Hematocrit 37.6% (35.0-46.0) Mean Corpuscular Volume 80.9fL (81-100) Mean Corpuscular Hemoglobin 29.9pg (27.0-35.0) Mean Corpuscular Hemoglobin Concent 37.0% (32.0-37.0) Red Cell Distribution Width 12.1% (12.3-15.4) Platelet Count 229bil/L (150-400) Neutrophils (%) (Auto) 46.4% (40-74) Lymphocytes (%) (Auto) 35.5% (14-46) Monocytes (%) (Auto) 11.2% (4-12) Eosinophils (%) (Auto) 6.0% (0-5) Basophils (%) (Auto) 0.7% (0-3) Magnesium Level 1.8mg/dL (1.6-2.6) Sodium Level 134mEq/L (134-144) Potassium Level 4.3mEq/L (3.5-5.2) Chloride Level 93mEq/L (97-108) Carbon Dioxide Level 30mmol/L (18-29) Blood Urea Nitrogen 13mg/dL (8-27) Creatinine 0.44mg/dL (0.57-1.00) Estimat Glomerular Filtration Rate 200mL/min (>59) Glucose Level 100mg/dL (60-99) Calcium Level 9.0mg/dL (8.5-10.1) Discharge Medications Discharge Medications Aspirin (Aspirin) 81 Mg Tablet 81 MG PO DAILY (Reported) Atorvastatin (Lipitor) 20 Mg Tablet 10 MG PO DAILY (Reported) Calcium Carbonate (Calcium Carbonate) 600 Mg Tablet 600 MG PO BID (Reported) Hydrochlorothiazide (Hydrochlorothiazide) 25 Mg Tablet 25 MG PO DAILY (Reported ) Lisinopril (Lisinopril) 5 Mg Tablet 5 MG PO DAILY (Reported) Loratadine (Claritin) 10 Mg Capsule 10 MG PO DAILY (Reported) Losartan Potassium (Losartan Potassium) 100 Mg Tablet 100 MG PO DAILY (Reported ) Potassium Chloride ER (Potassium Chloride ER) 20 Meq Tablet.er 40 MEQ PO BID ( Reported) TAKE WITH FOOD Miscellaneous Medications ([Glucosamine-Chondro]) (Reported) Followup Plan Disposition: Home with Discharge Diet: Other (Limit water intake to 6-8glasses per day. ) Discharge Activity: No restrictions Follow-up Provider: [facility] Follow-up with PCP in: 1 week Time spent 45 minutes copies to: [facility] Jamar Neri DO October 06, 2016 10:19
[2016-10-06] MEDS ORDERED: OXYC5TAB72 PO (10:23)
[2016-10-06] MEDS ORDERED: AMLO5TAB2 PO (10:23)
--- NOTE | 2016-10-06 10:26 | PCM.DIMED ---
Discharge Instructions Date of Service October 06, 2016 Dates of Hospitalization October 03, 2016 at 20:48 Discharge Diagnosis Discharge Diagnosis 1. Hyponatremia; 2. Lung Nodule 3. Hypertension 4. Back pain/disc disease Diet Other (Limit water intake to 6-8glasses per day. ) Activity No restrictions Patient Instructions Medication changes as prescribed Follow up in clinic in 1 week for recheck of electrolytes : sodium and potassium. Follow up as well for further consideration of Lung nodule noted on CT scan, elsa require additional imaging and consult to cementer. Follow-up Provider: [facility] Follow-up with PCP in: 1 week Jamar Neri DO October 06, 2016 10:26
--- NOTE | 2016-10-06 10:38 | NUR ---
DANA - Readiness for Discharge/Discharge Data: Pt is on day 3 of hospitalization for chest pain, back pain, hyponatremia. EMR reviewed. Pt is medically cleared for discharge and is up and independent in room. SW met with pt at bedside to confirm discharge plan, provided info for [facility] appointment for October 15 check in at 1040 for 1050 AM appointment with . All updated and agreeable to plan. Pt to transport home via spouse. No further needs assessed. Assessment: Pt who is independent at baseline Plan: Pt to discharge home via POV with follow up appt at [facility] October 15. NO further needs assessed. SHAHIDA Love
--- NOTE | 2016-10-06 12:05 | NUR ---
Discharge Patient departed unit via wheelchair, accompanied by staff and spouse. Patient alert and oriented at time of departure. Patient ambulating independently in room, denies chest discomfort, shortness of breath, nausea. Patient appetite good. Reports bowel movement last night, no difficulties with urination. Patient is forgetful. Spouse reports this is not a new development. Discharge instructions/medications reviewed with patient/spouse prior to discharge. All questions addressed. Patient belongings, discharge instructions and prescriptions in hand.
== END 2016-10-06 12:04 | disposition home or self-care (01) | DRG 641 ==
LOC: SED 19:06 → EDBD 19:06 → MPC 20:48
PROVIDERS: ADMIT Hospitalist; ATTEND Hospitalist
DX: E87.1 Hypo-osmolality and hyponatremia (principal); I10 Essential (primary) hypertension; I25.119 Atherosclerotic heart disease of native coronary artery with unspecified angina pectoris; R91.1 Solitary pulmonary nodule; E87.6 Hypokalemia; Z87.891 Personal history of nicotine dependence; M54.5 Low back pain; E78.5 Hyperlipidemia, unspecified; M48.56XD Collapsed vertebra, not elsewhere classified, lumbar region, subsequent encounter for fracture with routine healing